=== PATIENT | male | born 1985 | race Caucasian/White ===

== ENCOUNTER 2017-12-18 21:46 | Emergency (ER) | payer OTHER ==
[~2017-12-18] VITALS: Ht 172.7 cm; Wt 72.6 kg
[2017-12-18 21:56] VITALS: Ht 172.7 cm; Wt 72.6 kg
[2017-12-19 04:35] VITALS: BP 101/69
== END 2017-12-19 04:35 | disposition home or self-care (01) ==
LOC: EDBD 21:46 → ED 21:46
DX: F10.129 Alcohol abuse with intoxication, unspecified (principal); Y90.0 Blood alcohol level of less than 20 mg/100 ml
CPT/HCPCS: G0480

== ENCOUNTER 2018-04-11 20:18 | Emergency (ER) | payer OTHER ==
[~2018-04-11] VITALS: Ht 167.6 cm; Wt 75.3 kg
[2018-04-11 20:23] VITALS: Ht 167.6 cm; Wt 75.3 kg
[2018-04-11 22:00] LABS: BASOPHIL % 0.5 % (0-2); RED CELL DISTRIBUTION WIDTH 13.9 % (11.5-14.5)
[2018-04-11 22:03] LABS: PLATELET COUNT 426 x10^3mcL (130-400)
[2018-04-11 22:18] LABS: CALCIUM 9.2 mg/dL (8.5-10.1); CARBON DIOXIDE 26.9 mmol/L (21-32); CHLORIDE SERUM 101 mmol/L (98-107); CREATININE SERUM 0.9 mg/dL (0.7-1.3); GFR1 > 60 mL/min; GLUCOSE SERUM 102 mg/dL (74-106); POTASSIUM SERUM 3.9 mmol/L (3.5-5.1); SODIUM SERUM 138 mmol/L (136-145)
[2018-04-11 22:23] LABS: ALBUMIN 4.1 g/dL (3.4-5.0); ALKALINE PHOSPHATASE 115 U/L (46-116); ALT/SGPT 32 U/L (16-63); AST/SGOT 29 U/L (15-37)
[2018-04-12 01:10] VITALS: BP 110/88
== END 2018-04-12 01:40 | disposition home or self-care (01) ==
LOC: ED 20:18
PROVIDERS: Emergency Medicine
DX: L03.113 Cellulitis of right upper limb (principal)
CPT/HCPCS: J1885; J2543; J7030; Q0092

== ENCOUNTER 2018-04-16 08:53 | Emergency (ER) | payer OTHER ==
[~2018-04-16] VITALS: Ht 172.7 cm; Wt 77.6 kg
[2018-04-16 09:03] VITALS: Ht 172.7 cm; Wt 77.6 kg
[2018-04-16 10:06] VITALS: BP 116/85
== END 2018-04-16 10:06 | disposition home or self-care (01) ==
LOC: ED 08:53
DX: L03.113 Cellulitis of right upper limb (principal)